=== PATIENT | female | born 1950 | race Caucasian/White ===

== ENCOUNTER 2019-09-23 20:11 | Emergency (ER) | payer MEDICARE, MEDICAID ==
[~2019-09-23 20:11] MED LIST: Atropine Sulfate 1 mg/10 ml Syringe ONE; Calcium Chloride 1 GM/10 ML Abboject SYRINGE ONE; EPINEPHrine 1 MG/10 ML Abboject SYRINGE ONE; EPINEPHrine 1 MG/ML AMP ONE; Sodium Bicarb 50 MEQ/50 ML Abboject 8.4% SYRINGE ONE
[2019-09-23] MEDS ORDERED: Insulin Regular 300 UNITS/3 ML VIAL ONE (20:20)
[2019-09-23 20:27] LABS: Base Excess-Venous -5.5 mmol/L (-2.0 to 3.0); Bicarbonate (HCO3v) 21.6 mmol/L (22.0-28.0); CO2 Tension (PvCO2) 47.9 mmHg (40.0-50.0); Chloride 109 mmol/L (98-107); Glucose 134 mg/dL (80-115); Hemoglobin - Calc 11.3 g/dL (12.0-16.0); Lactate 11.63 mmol/L (0.50-2.20); Potassium 8.4 mmol/L (3.5-5.1); Sodium 142 mmol/L (138-145); T. Carbon Dioxide 23.1 mmol/L (22.0-28.0); vO2 Saturation-calc 92.4 % (60.0-85.0)
[2019-09-23] MEDS ORDERED: Albuterol Sulfate 2.5 mg/3 ml Neb ONE (20:27)
[2019-09-23] MEDS ORDERED: Norepinephrine 4 MG/4 ML VIAL ONE (20:28)
[2019-09-23] MEDS ORDERED: Norepinephrine 8 MG/0.9% NS 250 ML ONE (20:29)
[2019-09-23] MEDS ORDERED: VASOSTRICT 40 UNIT in Sodium Chloride 0.9% 100 ML IV SCH (20:30)
[2019-09-23 20:35] LABS: #Eosinphils 0.2 thou/uL (0.0-0.7); #Lymphocytes 5.4 thou/uL (1.20-3.40); #Monocytes 0.6 thou/uL (0.11-0.59); #Neutrophils 5.2 thou/uL (1.40-6.50); %Basophils 0.4 % (0.0-1.0); %Eosinophils 1.5 % (0.0-10.0); %Lymphocytes 47.2 % (21.0-51.0); %Monocytes 5.2 % (0.0-10.0); %Neutrophils 45.8 % (42.0-75.0); Hemoglobin 10.8 g/dL (12.0-16.0); Mean Corpuscular HGB CONC 29.7 g/dL (32.0-36.0); Mean Corpuscular Hemoglobin 23.2 pg (27.0-31.0); Mean Platelet Volume 9.6 fL (7.4-10.4); Platelet Count 141 thou/uL (130-400); RBC Distribution Width 16.8 % (11.5-14.5); Red Blood Cell (RBC) Count 4.63 mill/uL (4.20-5.40); White Blood Cell (WBC) Count 11.5 thou/uL (4.8-10.8)
[2019-09-23 20:41] LABS: Prothrombin Time 39.9 SEC (12.0-14.7)
[2019-09-23 20:46] LABS: INR-International Normal Ratio 4.2
[2019-09-23 20:48] LABS: ALT (SGPT) 277 U/L (8-55); AST (SGOT) 319 U/L (5-34); Alkaline Phosphatase 153 U/L (40-110); Anion Gap 32 mmol/L (10-20); BUN (Urea Nitrogen) 35 mg/dL (9.8-20.1); Bilirubin, Total 1.1 mg/dL (0.2-1.2); CK (CPK) 72 U/L (29-168); Calc. Creatinine Clearance 0 mL/min (70-130); Calcium 9.6 mg/dL (7.8-10.44); Carbon Dioxide 18 mmol/L (23-31); Chloride 106 mmol/L (98-107); Estimated GFR-MDRD 5; Globulin 2.1 g/dL (2.4-3.5); Glucose 127 mg/dL (80-115); Hypochromia SLIGHT = 6-15 cells (100X) (0-5/hpf); MDiff Complete? YES; Platelet Morphology Comment Appears Adequate; Protein, Total 5.1 g/dL (6.0-8.3); Sodium 147 mmol/L (136-145)
--- NOTE | 2019-09-23 21:04 | RAD ---
Portable frontal chest radiograph: 09/23/2019 COMPARISON: None HISTORY: Intubated patient, recent CPR FINDINGS: Portable technique, body habitus, and shallow inspiration limits detailed assessment. There is an endotracheal tube in place, which appears to terminate 1.8 cm proximal to the lucero. Cardiac silhouette is prominent. There is linear interstitial density in the perihilar regions and up per lobes suggesting vascular congestion and possible interstitial edema. Patchy nonspecific airspace disease noted within the right lung, particularly the right upper lobe region. IMPRESSION: Portable chest radiograph as described above.
[2019-09-23 21:09] LABS: CKMB 1.7 ng/mL (0-6.6)
== END 2019-09-23 20:33 | disposition expired ==
LOC: ERS 20:11 → EDBD 20:11 → ERS 20:33
DX: I46.9 Cardiac arrest, cause unspecified (principal); I12.0 Hypertensive chronic kidney disease with stage 5 chronic kidney disease or end stage renal disease; N18.6 End stage renal disease; E87.5 Hyperkalemia; I48.91 Unspecified atrial fibrillation
CPT/HCPCS: 36556; 71045; 80053; 82330; 82435; 82550; 82553; 82565; 82803; 82947; 83605; 83880; 84132; 84295; 84484; 85014; 85025; 85610; 85730; 92950; 93005; 96365; 96366; 96375; 96376; J0171; J0461; J1815; J3490; J7611